=== PATIENT | male | born 1970 | race Caucasian/White ===

== ENCOUNTER 2016-11-14 22:10 | Emergency (ER) | payer OTHER ==
[~2016-11-14] VITALS: Ht 182.9 cm; Wt 117.6 kg
[~2016-11-14 22:10] MED LIST: NORVASC5 MG PO
[2016-11-14] MEDS ORDERED: PEPCID20 MG PO (23:03)
[2016-11-14] MEDS ORDERED: PREDNISONE20 MG PO (23:03)
[2016-11-14 23:26] VITALS: BP 145/107
== END 2016-11-14 23:29 | disposition home or self-care (01) ==
LOC: EME 22:10
DX: T78.40XA Allergy, unspecified, initial encounter (principal); K21.9 Gastro-esophageal reflux disease without esophagitis; I10 Essential (primary) hypertension; J45.909 Unspecified asthma, uncomplicated; Z87.891 Personal history of nicotine dependence
CPT/HCPCS: 99281; 99283; J7512

== ENCOUNTER 2017-02-20 19:30 | Emergency (ER) | payer OTHER ==
[~2017-02-20] VITALS: Ht 182.9 cm; Wt 120.1 kg
[~2017-02-20 19:30] MED LIST changes: +PEPCID20 MG PO; +PREDNISONE20 MG PO
[2017-02-20 20:11] LABS: HEMATOCRIT 45.1 % (38.0-50.0); MCH 26.8 PG (29.0-34.0); MCHC 32.8 G/DL (30.0-36.0); MCV 81.6 FL (86-99); MEAN PLAT.VOLUME 10.5 uM^3 (9.0-12.4); PLATELET COUNT 236 K/uL (156-360); RBC DIS.WIDTH-CV 13.4 % (11.8-14.6); RBC DIS.WIDTH-SD 39.7 % (39-53); RED BLOOD COUNT 5.53 M/uL (4.00-5.50); WHITE BLOOD COUNT 8.4 K/uL (4.1-10.2)
[2017-02-20 20:23] LABS: CHLORIDE 104 mEq/L (99-109); POTASSIUM 3.8 mEq/L (3.7-5.4); SODIUM 143 mEq/L (136-147)
[2017-02-20 20:25] LABS: GLUCOSE 111 mg/dL (70-99)
[2017-02-20 20:27] LABS: ANION GAP 14 MEQ/L (2-14)
[2017-02-20 20:29] LABS: GFR ESTIMATE (CALCULATED) > 59 mL/min/
[2017-02-20 20:30] LABS: UREA NITROGEN (BUN) 20 mg/dL (9-23)
[2017-02-20 20:37] LABS: TROP-I INTERPRETATION NEGATIVE; TROPONIN-I < 0.01 ng/mL (0.0-0.30)
[2017-02-20 23:04] LABS: TROP-I INTERPRETATION NEGATIVE; TROPONIN-I < 0.01 ng/mL (0.0-0.30)
[2017-02-21 00:10] VITALS: BP 128/94
== END 2017-02-21 00:10 | disposition home or self-care (01) ==
LOC: EME 19:30
PROVIDERS: Emergency Medicine
DX: R07.89 Other chest pain (principal); R42 Dizziness and giddiness; R00.2 Palpitations; J45.909 Unspecified asthma, uncomplicated; I10 Essential (primary) hypertension; K21.9 Gastro-esophageal reflux disease without esophagitis; Z82.49 Family history of ischemic heart disease and other diseases of the circulatory system; Z87.891 Personal history of nicotine dependence
CPT/HCPCS: 71020; 80048; 84484; 85027; 93005; 99281; 99285

== ENCOUNTER 2017-09-09 19:30 | Emergency (ER) | payer OTHER ==
[~2017-09-09] VITALS: Ht 182.9 cm; Wt 114.5 kg
[2017-09-09 20:11] LABS: HEMATOCRIT 46.1 % (38.0-50.0); HEMOGLOBIN 15.3 G/DL (12.5-16.6); MCHC 33.2 G/DL (30.0-36.0); MCV 81.4 FL (86-99); PLATELET COUNT 198 K/uL (156-360); RBC DIS.WIDTH-CV 14.1 % (11.8-14.6); RBC DIS.WIDTH-SD 41.3 % (39-53); RED BLOOD COUNT 5.66 M/uL (4.00-5.50); WHITE BLOOD COUNT 8.3 K/uL (4.1-10.2)
[2017-09-09 20:25] LABS: CHLORIDE 107 mEq/L (99-109); POTASSIUM 4.2 mEq/L (3.7-5.4); SODIUM 141 mEq/L (136-147)
[2017-09-09 20:26] LABS: GLUCOSE 91 mg/dL (70-99)
[2017-09-09 20:30] LABS: CREATININE 1.1 mg/dL (0.6-1.3); GFR ESTIMATE (CALCULATED) > 59 mL/min/ (58.99-99999)
[2017-09-09 20:31] LABS: UREA NITROGEN (BUN) 22 mg/dL (9-23)
[2017-09-09 20:34] LABS: TROP-I INTERPRETATION NEGATIVE; TROPONIN-I < 0.01 ng/mL (0.0-0.30)
[2017-09-09 23:26] LABS: TROP-I INTERPRETATION NEGATIVE; TROPONIN-I < 0.01 ng/mL (0.0-0.30)
[2017-09-09 23:49] VITALS: BP 137/94
== END 2017-09-09 23:51 | disposition home or self-care (01) ==
LOC: EME 19:30
PROVIDERS: Physician Assistant
DX: R07.89 Other chest pain (principal); I10 Essential (primary) hypertension; K21.9 Gastro-esophageal reflux disease without esophagitis; J45.909 Unspecified asthma, uncomplicated; F41.9 Anxiety disorder, unspecified; Z87.891 Personal history of nicotine dependence; Z91.013 Allergy to seafood
CPT/HCPCS: 71046; 80048; 84484; 85027; 93005; 99281; 99285